=== PATIENT | female | born 2000 | race Caucasian/White ===

== ENCOUNTER 2020-01-03 05:21 | Inpatient (IN) | payer MEDICAID, OTHER ==
[~2020-01-03] VITALS: Ht 5 cm; Wt 96.9 kg
[2020-01-03] VITALS (71 sets, daily range): BP systolic 99–199; BP diastolic 58–105
[~2020-01-03 05:21] MED LIST: ABX
--- OUTSIDE RECORDS SUMMARY | 2020-01-03 05:26 | XMS REPORT ---
Author Author [facility] senior ui ux designer [employer] [facility] Address [address] [address] Care Team Providers Care Data Center Operator Name Role Phone NO, LOCAL PHYSICIAN Unavailable Unavailable ALECIA SHIN Unavailable Unavailable HILARY RENEE MD Unavailable Unavailable Unavailable Unavailable Allergies Normalized Allergy Reported Date of Reaction(s) Care Provider Facility Allergy Type classification allergen Allergy Onset DA (2 Unclassified No Known Drug 07-07-2016 - no information HILARY RENEE , Not Available sources.) Allergies (86495) Medications No Information Problems Active Problems Problem Normalized Date Last Normalized Normalized Provider Fa cility Classification Problem(s) Recorded Problem Problem Sta tus Duration Substance-rela Nicotine Chronic Active HILARY RENEE , Not Available kumar disorders dependence, (81137) (2 sources.) cigarettes, uncomplicated Past or Other Problems Problem Normalized Date Last Normalized Normalized Provider Fa cility Classification Problem(s) Recorded Problem Problem Sta tus Duration Bacterial Chlamydial Episodic Completed ALECIA Not Availab le infection; infection, MARCI ACOSTA (32445) unspecified unspecified site (1 source.) Abdominal pain Lower Episodic Completed HILARY RENEE , Not Available (1 source.) abdominal (84123) pain, unspecified Ovarian cyst Unspecified no information no information HILARY SOLIS , Not Available (1 source.) ovarian cystMD (19220) right side Procedures The data below is from unstructured sourcesNo known history of procedures. Immunizations The data below is from unstructured sourcesNo immunization records. Results No Information Vital Signs The data below is from unstructured sources Vital Response Date/Time Temperature (Fahrenheit) 97.8 degree s F (97.6 - 99.5) 07/08/2016 5:12pm Temperature (Calculated Celsius) 36. 87669 degrees C (36.4 - 37.5) 07/08/2016 5:12pm Temperature Source Temporal 07/08/2016 5:12pm Pulse Rate (Adolescent 12-19yrs) 74 bpm (56 - 106) 07/08/2016 5:12pm O2 Sat by Pulse Oximetry 98 % (88 - 100) 07/07/2016 6:55pm Respiratory Rate (Adolescent 12-19yrs) 16 bpm (15 - 20) 07/08/2016 5:12pm Blood Pressure / Blood Pressure Systolic (Adolescent 12-19yrs) 141 mm Hg (115 - 120) 07/08/2016 5:12pm Pain Numeric Pain Scale 0-No Pain 07/08/2016 5:12pm Height (Feet) 5 feet 12/2015 5:12pm Height (Inches) 0 inches 07/07/2016 4:20pm Height (Calculated Centimeters) 152. 804715 cm 07/08/2016 5:12pm Weight (Pounds) 160 pounds 07/08/2016 5:12pm Weight (Calculated Kilograms) 72.574 780 kilograms 07/08/2016 5:12pm Calculated BMI 31.24 11/2015 4:20pm Interventions No Information Plan of Treatment The data below is from unstructured sources Discharge Date 07/08/16 7:01pm Disposition 01 HOME, SELF-CARE Condition at Discharge Improved Instructions/Education Provided Chla mydia and Gonorrhea Sexually-Transmitted Diseases (DC) Forms Provided Local Medical Staff L isting Prescriptions See Medication Section Referrals NO,LOCAL PHYSICIAN - [facility] Physician Additional Instructions/Education Al l discharge instructions reviewed with patient and/or family. 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 Take as directed. Continue medications prescribed by Dr. Renee at [facility] emergency department yesterday. Follow-up with the family practitioner of your choice or health department of your choice for retesting for Chlamydia after treatment is completed. Have all partners tested and treated for Chlamydia. No intercourse or oral sex until cleared by your family practitioner. Return to the emergency department for worsened symptoms or any other concerns. Goals No Information Social History No Information Functional Status The data below is from unstructured sourcesNo functional status results. Mental Status No Information Encounters No Information Medical Equipment No Information Payers No Information Advance Directives Directive Response Recor ded Date/Time Advance Directives No 5:21pm Resuscitation Status Full Code 07/08/16 5:21pm Discharge Instructions No hospital discharge instructions. Additional Source Comments This clinical document has been generated using [employer] software that has been certified by the Office of the National Coordinator for Health Information Technology (ONC 15.99.04.3023.Diam.31.00.0.039682) and the National Committee for Medical Data Analyst (NCQA, as an eMeasure certified technology). FOR RECORDS PERTAINING TO PATIENTS WHO ARE OR HAVE BEEN ENROLLED IN A CHEMICAL D EPENDENCY/SUBSTANCE ABUSE PROGRAM, SOME INFORMATION MAY BE OMITTED. This clinica l summary was aggregated from multiple sources. Caution should be exercised in using it in the provision of clinical care. This summary normalizes information from multiple sources, and as a consequence, information in this document may ma terially change the coding, format and clinical context of patient data. In kristin tion, data may be omitted in some cases. CLINICAL DECISIONS SHOULD BE BASED ON T HE PRIMARY CLINICAL RECORDS. [employer] provides no warranty or guara ntee of the accuracy or completeness of information in this document.The followi ng information is based on time limited clinical information
--- OUTSIDE RECORDS SUMMARY | 2020-01-03 05:26 | XMS REPORT | Continuity of Care Document ---
Author Organization Unknown Address Unknown Phone Unavailable Allergies Active Description Code Type Severity Reaction Onset Reported/Identified Relationship to Patient Clinical Status Yes No Known Drug Allergies [id number] Drug Allergy Unknown N/A 07/07/2016 Medications There is no data. Problems Date Dx Coded Attending Type Code Diagnosis Diagnosed By 07/07/2016 HILARY PALENCIA MD Ot F17.210 NICOTINE DEPENDENCE, CIGARETTES, UNCOMPL 07/07/2016 HILARY PALENCIA MD Ot N39. 0 URINARY TRACT INFECTION, SITE NOT SPECIF 07/07/2016 HILARY PALENCIA MD Ot N83.201 UNSPECIFIED OVARIAN CYST, RIGHT SIDE 07/07/2016 HILARY PALENCIA MD Ot R10. 30 LOWER ABDOMINAL PAIN, UNSPECIFIED 07/08/2016 ALECIA SHIN Ot A74.9 CHLAMYDIAL INFECTION, UNSPECIFIED 07/08/2016 ALECIA SHIN Ot F17.210 NICOTINE DEPENDENCE, CIGARETTES, UNCOMPL 07/08/2016 ALECIA SHIN Ot N39.0 URINARY TRACT INFECTION, SITE NOT SPECIF 07/09/2016 HILARY PALENCIA MD Ot F17.210 NICOTINE DEPENDENCE, CIGARETTES, UNCOMPL 07/09/2016 HILARY PALENCIA MD Ot N39. 0 URINARY TRACT INFECTION, SITE NOT SPECIF 07/09/2016 HILARY PALENCIA MD Ot N83.201 UNSPECIFIED OVARIAN CYST, RIGHT SIDE 07/09/2016 HILARY PALENCIA MD Ot R10. 30 LOWER ABDOMINAL PAIN, UNSPECIFIED 07/09/2016 ALECIA SHIN Ot A74.9 CHLAMYDIAL INFECTION, UNSPECIFIED 07/09/2016 ALECIA SHIN Ot F17.210 NICOTINE DEPENDENCE, CIGARETTES, UNCOMPL 07/09/2016 ALECIA SHIN Ot N39.0 URINARY TRACT INFECTION, SITE NOT SPECIF Procedures There is no data. Results Test Result Range Complete urinalysis with reflex to cultu re - 07/07/16 16:18 Urine color determination YELLOW NRG Urine clarity determination SLIGHTLY CLOUDY NRG Urine pH measurement by test strip 6.5 5-9 Specific gravity of urine by test strip 1.005 1.016-1.022 Urine protein assay by test strip, semi-quantitative NEGATIVE NEGATIVE Urine glucose detection by automated test strip NE GATIVE NEGATIVE Erythrocytes detection in urine sediment by light micr oscopy 1+ NEGATIVE Urine ketones detection by automated test strip NE GATIVE NEGATIVE Urine nitrite detection by test strip NEGATIVE NEGATIVE Urine total bilirubin detection by test strip NEGA TIVE NEGATIVE Urine urobilinogen measurement by automated test strip (mass/volume) NORMAL NORMAL Urine leukocyte esterase detection by dipstick 2+ NEGATIVE Automated urine sediment erythrocyte cou nt by microscopy (number/high power field) [HPF] NRG Automated urine sediment leukocyte count by microscopy (number/high power field) [HPF] NRG Bacteria detection in urine sediment by light microsco py FEW NRG Squamous epithelial cells detection in u rine sediment by light microscopy 25-50 NRG Crystals detection in urine sediment by light microsco py NONE NRG Casts detection in urine sediment by light microscopy NONE NRG Mucus detection in urine sediment by light microscopy NEGATIVE NRG Complete urinalysis with reflex to culture YES NRG Bacterial urine culture - 07/07/16 16:18 Bacterial urine culture [id number] NRG COLONY COUNT >100,000/ML NRG FTX;REPORTABLE PLUS MIXED GRAM POSITIVES NRG URINE CULTURE RESULTS <10,000/ML NRG FREE TEXT ENTRY 2 <10,000/ML NRG Complete blood count (CBC) with automate d white blood cell (WBC) differential - 07/07/16 16:34 Blood leukocytes automated count (number/volume) 9.2 10*3/uL 4.3-11.0 Blood erythrocytes automated count (number/volume) 5.37 10*6/uL 4.35-5.85 Venous blood hemoglobin measurement (mass/volume) 15.9 g/dL 11.5-16.0 Blood hematocrit (volume fraction) 46 % 35-52 Automated erythrocyte mean corpuscular volume 86 [ foz_us] 80-99 Automated erythrocyte mean corpuscular h emoglobin (mass per erythrocyte) 30 pg 25-34 Automated erythrocyte mean corpuscular h emoglobin concentration measurement (mass/volume) 34 g/dL 32-36 Automated erythrocyte distribution width ratio 12. 4 % 10.0- 14.5 Automated blood platelet count (count/volume) 273 10*3/uL 130-400 Automated blood platelet mean volume measurement 10.7 [foz_us] 7.4-10.4 Automated blood neutrophils/100 leukocytes 52 % 42-75 Automated blood lymphocytes/100 leukocytes 36 % 12-44 Blood monocytes/100 leukocytes 9 % 0-12 Automated blood eosinophils/100 leukocytes 3 % 0-10 Automated blood basophils/100 leukocytes 1 % 0-10 Blood neutrophils automated count (number/volume) 4.8 10*3 1.8-7.8 Blood lymphocytes automated count (number/volume) 3.3 10*3 1.0-4.0 Blood monocytes automated count (number/volume) 0. 8 10*3 0.0-1.0 Automated eosinophil count 0.2 10*3/uL 0 .0-0.3 Automated blood basophil count (count/volume) 0.1 10*3/uL 0.0-0.1 Lipase - 07/07/16 16:34 Lipase 60 U/L 8-78 Comprehensive metabolic panel - 07/07/16 16:34 Serum or plasma sodium measurement (moles/volume) 141 mmol/L 135-145 Serum or plasma potassium measurement (moles/volume) 4.0 mmol/L 3.6-5.0 Serum or plasma chloride measurement (moles/volume) 108 mmol/L 98-107 Carbon dioxide 23 mmol/L 21-32 Serum or plasma anion gap determination (moles/volume) 10 mmol/L 5-14 Serum or plasma urea nitrogen measurement (mass/volume ) 9 mg/dL 7-18 Serum or plasma creatinine measurement (mass/volume) 0.77 mg/dL 0.60-1.30 Serum or plasma urea nitrogen/creatinine mass ratio 12 NRG Serum or plasma creatinine measurement w ith calculation of estimated glomerular filtration rate > NRG Serum or plasma glucose measurement (mass/volume) 64 mg/dL 70-105 Serum or plasma calcium measurement (mass/volume) 9.5 mg/dL 8.5-10.1 Serum or plasma total bilirubin measurement (mass/volu me) 0.3 mg/dL 0.1-1.0 Serum or plasma alkaline phosphatase ata surement (enzymatic activity/volume) 22 U/L 60-350 Serum or plasma aspartate aminotransfera se measurement (enzymatic activity/volume) 17 U/L 5-34 Serum or plasma alanine aminotransferase measurement (enzymatic activity/volume) 36 U/L 0-55 Serum or plasma protein measurement (mass/volume) 7.6 g/dL 6.4-8.2 Serum or plasma albumin measurement (mass/volume) 4.8 g/dL 3.2-4.5 Encounters ACCT No. Visit Date/Time Discharge Status Pt. Type Provider Facility Loc./Unit Complaint [id number] 07/08/2016 17:09:00 016 19:01:00 DIS Emergency ALECIA SHIN Via [facility] ER POSSIBLE UTI [id number] 07/07/2016 16:10:00 016 18:55:00 DIS Emergency TALHA FIORE, HILARY Farris Via [facility] ER STOMACH PAIN [id number] 01/03/2020 06:00:00 P EN Preadmit PRAMOD FISHER, SENDY Jones NDUCTION
[2020-01-03] MEDS ORDERED: MINERAL OIL CONCENTRATE 99.9% 15 ML UDC TOP PRN (05:30)
--- NOTE | 2020-01-03 05:30 | NUR ---
GREYSON ALVAREZ presented to unit via ambulation from ED, accompanied by juan antonio for INDUCTION of labor. GREYSON ALVAREZ weighed, gowned, voided, and to bed. EFHM and TOCO applied, VS taken. GREYSON ALVAREZ oriented to bed controls, call light, TV, heat, and A/C controls.
[2020-01-03] MEDS: D5 LR IV SOLUTION 1,000 ML IV SCH ×3 (05:54→19:26)
[2020-01-03 05:56] LABS: BILIRUBIN,URINE NEGATIVE (NEGATIVE); CLARITY,URINE SL CLOUDY; COLOR,URINE YELLOW; GLUCOSE, URINE (UA) NEGATIVE (NEGATIVE); KETONES,URINE NEGATIVE (NEGATIVE); LEUKOCYTE ESTERASE ,URINE 1+ (NEGATIVE); NITRITE,URINE NEGATIVE (NEGATIVE); PROTEIN,URINE NEGATIVE (NEGATIVE)
[2020-01-03] MEDS ORDERED: CATHETER FLUSH 10 ML SYR IV SCH (06:00)
[2020-01-03 06:06] LABS: BASOPHILS % (AUTO) 0 % (0-10); EOSINOPHILS # (AUTO) 0.1 10^3/uL (0.0-0.3); EOSINOPHILS % (AUTO) 1 % (0-10); HEMATOCRIT 37 % (35-52); HEMOGLOBIN 12.6 G/DL (11.5-16.0); LYMPHOCYTES % (AUTO) 22 % (12-44); MEAN CORPUSCULAR HEMOGLOBIN 29 PG (25-34); MEAN CORPUSCULAR HGB CONC 34 G/DL (32-36); MEAN CORPUSCULAR VOLUME 84 FL (80-99); MEAN PLATELET VOLUME 11.4 FL (7.4-10.4); MONOCYTES # (AUTO) 0.8 X 10^3 (0.0-1.0); MONOCYTES % (AUTO) 6 % (0-12); NEUTROPHILS # (AUTO) 9.7 X 10^3 (1.8-7.8); NEUTROPHILS % (AUTO) 71 % (42-75); PLATELET COUNT 214 10^3/uL (130-400); RED CELL DISTRIBUTION WIDTH 13.3 % (10.0-14.5); WHITE BLOOD COUNT 13.7 10^3/uL (4.3-11.0)
[2020-01-03 06:10] LABS: BACTERIA,URINE TRACE /HPF; WBC,URINE RARE /HPF
[2020-01-03] MEDS ORDERED: LACTATED RINGERS 1,000 ML IV ONE ×2 (06:45→07:39)
[2020-01-03] MEDS ORDERED: fentaNYL INJECTION 100 MCG/2 ML AMP ONE (06:57)
[2020-01-03] MEDS ORDERED: BUPIVACAINE 0.25% 30 ML (SENSORCAINE) VIAL ONE (06:57)
[2020-01-03] MEDS ORDERED: fentaNYL 2 mcg/ml BUPIVA 0.125 100 ML ONE (06:58)
--- NOTE | 2020-01-03 07:28 | History & Physical-OB/GYN ---
History of Present Illness History of Present Illness Reason for visit/HPI Ms. Colunga, A0, at 39 2/7 weeks gestation, presents to Labor & Delivery for Pitocin Induction of Labor. Date of Admission Jan 03, 2020 at 05:21 Date Seen by a Provider: Jan 03, 2020 Time Seen by a Provider: 06:55 I consulted on this patient on 01/03/20 07:22 Attending Physician Conrad Ryan DO Admitting Physician Conrad Ryan DO Consult Allergies and Home Medications Allergies Coded Allergies: No Known Drug Allergies (Unverified , 07/07/16) Patient Home Medication List Home Medication List Reviewed: Yes Past Cpzioty-Ocwxjt-Gsyrvx Hx Patient Social History Marrital Status: single Number of Children: 0 Number of living children: 0 Alcohol Use: Denies Use Recreational Drug Use: No Type Used: Cigarettes Recent Foreign Travel: No Contact w/other who traveled: No Recent Hopitalizations: No Immunizations Up To Date Tetanus Booster (TDap): Less than 5yrs Seasonal Allergies Seasonal Allergies: No Reproductive System Hx Reproductive Disorders: No Genitourinary No Gastrointestinal No Musculoskeletal No Endocrine History of Endocrine Disorders: No HEENT History of HEENT Disorders: No Cancer No Psychosocial History of Psychiatric Problem: No Integumentary History of Skin or Integumenta: No Family Medical History Significant Family History: No Pertinent Family Hx Review of Systems Constitutional: see HPI Physical Exam Physical Exam Vital Signs Vital Signs Date Time Temp Pulse Resp B/P (MAP) Pulse Ox O2 Delivery O2 Flow Rate FiO2 01/03/20 06:30 36.5 98 18 128/86 (100) 98 Capillary Refill : Labs Laboratory Tests 01/03/20 05:45: White Blood Count 13.7H, Red Blood Count 4.37, Hemoglobin 12.6, Hematocrit 37, Mean Corpuscular Volume 84, Mean Corpuscular Hemoglobin 29, Mean Corpuscular Hemoglobin Concent 34, Red Cell Distribution Width 13.3, Platelet Count 214, Mean Platelet Volume 11.4H, Neutrophils (%) (Auto) 71, Lymphocytes (%) (Auto) 22, Monocytes (%) (Auto) 6, Eosinophils (%) (Auto) 1, Basophils (%) (Auto) 0, Neutrophils # (Auto) 9.7H, Lymphocytes # (Auto) 3.0, Monocytes # (Auto) 0.8, Eosinophils # (Auto) 0.1, Basophils # (Auto) 0.0 01/03/20 05:48: Urine Color YELLOW, Urine Clarity SL CLOUDY, Urine pH 7.0, Urine Specific [place] 1.020, Urine Protein NEGATIVE, Urine Glucose (UA) NEGATIVE, Urine Ketones NEGATIVE, Urine Nitrite NEGATIVE, Urine Bilirubin NEGATIVE, Urine Urobilinogen 0.2, Urine Leukocyte Esterase 1+H, Urine RBC (Auto) NEGATIVE, Urine RBC NONE, Urine WBC RARE, Urine Squamous Epithelial Cells 5-10, Urine Crystals NONE, Urine Bacteria TRACE, Urine Casts NONE, Urine Mucus LARGEH, Urine Culture Indicated NO General Appearance: No Apparent Distress, WD/WN Respiratory: Chest Non Tender, Lungs Clear, Normal Breath Sounds Cardiovascular: Regular Rate, Rhythm, No Murmur Abdominal: normal bowel sounds (Gravid), non tender, soft Labia: WNL Vagina: WNL Cervix: WNL Uterus: WNL, Enlarged (Gravid) Extremity: Normal Range of Motion, Non Tender, Swelling (+1 in lower extremities) Assessment/Plan Assessment and Plan Assessment: Intrauterine at 39 2/7 weeks Plan: Pitocin Induction of Labor. AROM. Epidural anesthesia. Normal Spontaneous Vaginal Delivery expected. Admission Diagnosis Admission Status: Inpatient Order (span 2 midnights) Reason for Inpatient Admission: Intrauterine with delivery expected CONRAD RYAN DO Jan 03, 2020 07:28
[2020-01-03] MEDS ORDERED: OXYTOCIN PRE-MIX DRIP 500 ML IV ONE ×2 (07:30→23:37)
[2020-01-03] MEDS: fentaNYL 2 mcg/ml BUPIVA 0.125 100 ML IV SCH ×2 (07:35→16:15)
[2020-01-03] MEDS ORDERED: CATHETER FLUSH 10 ML SYR IV PRN (07:45)
[2020-01-03] MEDS ORDERED: EPIDURAL (fentaNYL 2 MCG/ML BUPIVA 0.125%)100 ML BAG EPI SCH (07:45)
[2020-01-03] MEDS ORDERED: NALOXONE 0.4 MG/ML 1 ML (NARCAN) VIAL IV PRN (07:45)
[2020-01-03] MEDS ORDERED: PREN-142 PO (09:01)
--- NOTE | 2020-01-03 12:29 | NUR ---
Notified Dr Ryan per text of pt's dilated to 3-4 cms. No new orders.
--- NOTE | 2020-01-03 19:05 | NUR ---
report received on pt.
--- NOTE | 2020-01-03 19:40 | NUR ---
Pitocin restarted at 10m/u.
--- NOTE | 2020-01-03 20:09 | NUR ---
Dr Ryan notified of cervical exam.
[2020-01-04] VITALS (28 sets, daily range): BP systolic 108–143; BP diastolic 65–108
[2020-01-04] MEDS ORDERED: ACETAMINOPHEN 650 MG SUPP (TYLENOL) PR ONE (00:15)
[2020-01-04] MEDS: fentaNYL 2 mcg/ml BUPIVA 0.125 100 ML IV SCH (01:07)
[2020-01-04] MEDS: D5 LR IV SOLUTION 1,000 ML IV SCH (01:56)
[2020-01-04] MEDS ORDERED: CITRIC ACID/SOB CIT (BICITRA) 30 ML UDC ONE (04:31)
[2020-01-04] MEDS ORDERED: METOCLOPRAMIDE INJ 10 MG/2 ML (REGLAN) ONE (04:31)
[2020-01-04] MEDS ORDERED: ceFAZolin 2 GM IV Premixed 50 ML ONE (04:31)
[2020-01-04] MEDS ORDERED: FAMOTIDINE 20MG/2ML IV (PEPCID) ONE (04:32)
--- NOTE | 2020-01-04 04:50 | Labor Progress Note ---
Labor Progress Note Labor Progress Note Date Seen by Provider: Jan 04, 2020 Time Seen by Provider: 04:00 Subjective: Ms. Colunga only complains of pressure. Objective: (Can we insert 24 hour vitals here?) Cervical exam: [Complete] Consistency: [100%] Position: [LOP] Presentation: [Vertex] heart tones: [160-170] beats per minute, [moderate] variability, [] reactive Tocometer: [3-4] ctx/10 minutes Assessment/Plan: Sam Colunga is a (19 /Para 1 /0 ,Gestational Age (wks)39 here for [Pitocin Induction]. CEFM/TOCO Continue pitocin/[No] Anesthesia: [Epidural] Ms. Colunga has pushed for several hours with no further descent of vertex, only increase of caput secundum. Low forceps were attempted, with no further progress. In the LOP presentation, I told Ms. Colunga and her significant other that it doesn't seem as though a vaginal delivery is possible. We discussed proceeding with a . The procedure and its associated risks were discussed. All questions were answered. Assessment: Intrauterine at 39 3/7 weeks 2. Tachycardia 3. Secondary Arrest of Descent 4. Persistent Occiput Posterior Plan: Proceed with an immediate Primary Low Transverse Vitals - Labs Vital Signs - I&O Vital Signs Date Time Temp Pulse Resp B/P (MAP) Pulse Ox O2 Delivery O2 Flow Rate FiO2 01/04/20 03:15 123 126/65 (85) 01/04/20 03:00 101 125/67 (86) 01/04/20 02:45 107 123/70 (87) 01/04/20 02:30 115 123/75 (91) 01/04/20 02:15 109 121/76 (91) 01/04/20 02:00 37.6 103 127/80 (96) 01/04/20 01:45 108 130/80 (97) 01/04/20 01:30 130 128/80 (96) 01/04/20 01:15 103 132/79 (96) 01/04/20 01:00 37.2 99 121/71 (88) 01/04/20 00:45 91 129/82 (98) 01/04/20 00:32 37.4 01/04/20 00:30 90 135/82 (99) 01/04/20 00:15 96 141/86 (104) 01/04/20 00:00 37.2 94 131/88 (102) 01/03/20 23:45 80 142/69 (93) 01/03/20 23:30 93 160/71 (100) 01/03/20 23:15 93 177/78 (111) 01/03/20 23:00 101 145/94 (111) 01/03/20 22:45 37.1 111 142/93 (109) 01/03/20 22:30 37.2 103 139/100 (113) 01/03/20 22:15 106 138/92 (107) 01/03/20 22:00 96 138/89 (105) 01/03/20 21:45 98 141/95 (110) 01/03/20 21:30 93 149/91 (110) 01/03/20 21:15 87 160/103 (122) 01/03/20 21:00 36.7 88 152/95 (114) 01/03/20 20:45 82 150/94 (112) 01/03/20 20:30 76 160/95 (116) 01/03/20 20:15 113 151/78 (102) 01/03/20 20:00 89 165/105 (125) Non Rebreather 01/03/20 19:45 36.5 82 133/85 (101) Non Rebreather 01/03/20 19:30 78 133/85 (101) Non Rebreather 01/03/20 19:15 71 117/75 (89) Non Rebreather 01/03/20 19:00 77 129/82 (98) Room Air 01/03/20 18:45 82 136/94 (108) Room Air 01/03/20 18:30 83 125/88 (100) Room Air 01/03/20 18:15 76 139/96 (110) Room Air 01/03/20 18:00 85 140/101 (114) Room Air 01/03/20 17:45 103 199/78 (118) Room Air 01/03/20 17:30 74 129/87 (101) Room Air 01/03/20 17:15 88 114/74 (87) Room Air 01/03/20 17:00 82 112/79 (90) Room Air 01/03/20 16:45 82 112/79 (90) Room Air 01/03/20 16:30 65 122/84 (97) Room Air 01/03/20 16:15 68 120/78 (92) Room Air 01/03/20 16:00 36.2 70 16 110/72 (85) Room Air 01/03/20 15:45 71 99/72 (81) Room Air 01/03/20 15:30 66 108/66 (80) Room Air 01/03/20 15:15 68 103/63 (76) Room Air 01/03/20 15:00 68 99/59 (72) Room Air 01/03/20 14:45 64 109/64 (79) Room Air 01/03/20 14:30 Room Air 01/03/20 14:15 80 130/80 (97) Room Air 01/03/20 14:00 75 123/78 (93) Room Air 01/03/20 13:45 36.4 83 121/71 (88) Room Air 01/03/20 13:30 Room Air 01/03/20 13:15 79 120/75 (90) Room Air 01/03/20 13:00 71 16 109/68 (82) Room Air 01/03/20 12:45 36.9 81 105/70 (82) Room Air 01/03/20 12:30 74 101/61 (74) Room Air 01/03/20 12:15 83 118/71 (87) 98 Room Air 01/03/20 12:00 71 127/61 (83) 99 Room Air 01/03/20 11:45 80 97 Room Air 01/03/20 11:30 67 119/61 (80) 98 Room Air 01/03/20 11:15 66 118/61 (80) 98 Room Air 01/03/20 11:00 85 116/68 (84) 97 Room Air 01/03/20 10:45 70 109/60 (76) 97 Room Air 01/03/20 10:30 67 106/62 (77) 99 Room Air 01/03/20 10:15 67 116/68 (84) 99 Room Air 01/03/20 10:00 83 109/58 (75) 95 Room Air 01/03/20 09:45 73 105/60 (75) 95 Room Air 01/03/20 09:30 64 108/60 (76) 94 Room Air 01/03/20 09:15 66 108/60 (76) 96 Room Air 01/03/20 09:00 71 16 110/70 (83) 96 Room Air 01/03/20 08:45 70 113/72 (86) 97 Room Air 01/03/20 08:30 89 119/77 (91) 93 Room Air 01/03/20 08:15 93 114/78 (90) 98 Room Air 01/03/20 08:00 77 16 128/85 (99) 98 Room Air 01/03/20 07:45 96 120/77 (91) 97 01/03/20 07:42 88 122/73 (89) 96 01/03/20 07:40 88 125/81 (96) 01/03/20 07:36 94 16 128/82 (97) 01/03/20 07:35 86 135/95 (108) 100 01/03/20 07:33 86 118/81 (93) 01/03/20 07:22 97 145/105 (118) 98 01/03/20 07:22 86 122/73 (89) 96 01/03/20 07:16 94 149/105 (120) 100 Room Air 01/03/20 07:10 135/96 (109) 99 01/03/20 06:30 36.5 98 18 128/86 (100) 98 01/03/20 06:30 36.5 98 16 98 Room Air I & O 01/04/20 07:00 Intake Total 2100 ml Balance 2100 ml Labs Laboratory Tests 01/03/20 05:45: White Blood Count 13.7H, Red Blood Count 4.37, Hemoglobin 12.6, Hematocrit 37, Mean Corpuscular Volume 84, Mean Corpuscular Hemoglobin 29, Mean Corpuscular Hemoglobin Concent 34, Red Cell Distribution Width 13.3, Platelet Count 214, Mean Platelet Volume 11.4H, Neutrophils (%) (Auto) 71, Lymphocytes (%) (Auto) 22, Monocytes (%) (Auto) 6, Eosinophils (%) (Auto) 1, Basophils (%) (Auto) 0, Neutrophils # (Auto) 9.7H, Lymphocytes # (Auto) 3.0, Monocytes # (Auto) 0.8, Eosinophils # (Auto) 0.1, Basophils # (Auto) 0.0 01/03/20 05:48: Urine Color YELLOW, Urine Clarity SL CLOUDY, Urine pH 7.0, Urine Specific [place]ena 1.020, Urine Protein NEGATIVE, Urine Glucose (UA) NEGATIVE, Urine Ketones NEGATIVE, Urine Nitrite NEGATIVE, Urine Bilirubin NEGATIVE, Urine U robilinogen 0.2, Urine Leukocyte Esterase 1+H, Urine RBC (Auto) NEGATIVE, Urine RBC NONE, Urine WBC RARE, Urine Squamous Epithelial Cells 5-10, Urine Crystals NONE, Urine Bacteria TRACE, Urine Casts NONE, Urine Mucus LARGEH, Urine Culture Indicated NO SEALS,SENDY Garcia DO Jan 04, 2020 04:50
[2020-01-04] MEDS ORDERED: OXYTOCIN PRE-MIX DRIP 1,000 ML IV ONE (04:58)
[2020-01-04] MEDS ORDERED: LIDOCAINE PF 2% 5 ML (XYLOCAINE) VIAL ONE (04:58)
[2020-01-04] MEDS ORDERED: ONDANSETRON 4 MG/2 ML (SDV) Z0FRAN ONE (04:58)
[2020-01-04] MEDS ORDERED: BUPIVACAINE 0.25% 30 ML (SENSORCAINE) VIAL ONE (04:58)
[2020-01-04] MEDS ORDERED: fentaNYL INJECTION 100 MCG/2 ML AMP ONE (04:58)
[2020-01-04] MEDS ORDERED: KETOROLAC 30 MG/ML VIAL ONE (05:03)
[2020-01-04] MEDS ORDERED: MIDAZOLAM 2 MG/2 ML (VERSED) VIAL ONE (05:38)
[2020-01-04] MEDS ORDERED: KETAMINE/NaCl 50 MG/5 ML SYRINGE (ED ONLY) ONE (05:38)
[2020-01-04] MEDS: KETOROLAC 30 MG/ML VIAL IV SCH ×3 (06:15→18:43)
[2020-01-04] MEDS ORDERED: OXYTOCIN PRE-MIX DRIP 500 ML IV SCH (06:34)
[2020-01-04] MEDS ORDERED: fentaNYL INJECTION 100 MCG/2 ML AMP IVP PRN (06:45)
[2020-01-04] MEDS ORDERED: TETANUS,DIPTH,PERTUSS P/F (BOOSTRIX) 0.5 ML VIAL IM SCH (06:45)
[2020-01-04] MEDS ORDERED: MEASLES,MUMPS,RUBELLA 1 EA INJ SC SCH (06:45)
[2020-01-04] MEDS ORDERED: ONDANSETRON 4 MG/2 ML (SDV) Z0FRAN IVP PRN (06:45)
--- NOTE | 2020-01-04 06:49 | Cesarean Section Operative ---
Procedure Procedure Note Pre-operative Diagnosis: Sam vaughn (19 /Para / ,Gestational Age (wks)39 3/7 weeks with [Secondary Arrest of Descent 2. Tachycardia] Post-operative Diagnosis: same [and Persistent Occiput Posterior and Thick Meconium] Procedure: [Primary] low transverse section Physician: SENDY BENAVIDEZ Law Librarian: [None] Estimated blood loss: [200] mL Disposition: [Recovery Room] Findings: Viable [female] , Apgars [2, 7], weight [], intact placenta, 3vc, normal appearing uterus, tubes, and ovaries. Indications:Sam shahid a (19 /Para / ,Gestational Age (wks)39 3/7 weeks presenting for [Pitocin Induction, but secondary to no progression after several hours and increased heart rate along with meconium stained amniotic fluid, it was decided that we would proceed with an immediate C- Section]. Procedure Details: The patient was seen in pre-op and the procedure was discussed with the patient in full, including the risks, benefits, and alternatives. All questions were answered. The patient was taken to the operating room and a time out was performed, verifying patient and procedure. After epidural anesthesia was placed by our anesthesia colleagues, the patient was placed in the dorsal supine with leftward tilt for uterine displacement.~ Her abdomen was then prepped and draped in the typical sterile fashion. A Pfannenstiel skin incision was made using a scalpel and carried down through the underlying fascia. The fascia was incised in the midline and tented up using Luis Daniel clamps. On both the inferior and superior fascia side the rectus muscle was dissected off bluntly and sharply using Deluca scissors. The peritoneum was identified and entered bluntly in the midline. This was then stretched laterally using manual strength. After entering the abdominal cavity and confirming lack of intraperitoneal adhesions, a large Wing retractor was placed and the lower uterine segment was visualized. A bladder flap was created with the use of Metzenbaum scissors.~ A scalpel was utilized to make a low transverse uterine incision. Thick meconium fluid was noted. The 's head was grasped and brought to the level of the incision. Nuchal cord x 1 was manually reduced. Fundal pressure was applied and was delivered without difficulty. Mouth and nares were suctioned with bulb suction. After the umbilical cord was clamped and cut, the infant was handed off to the pediatric staff where NRP protocol was followed. A sample of cord blood was then obtained. The placenta was delivered intact via uterine massage. The uterus was exteriorized and cleared of all clots and debris. The uterine incision was closed using 0 Vicryl in a running locked fashion. A second imbricated layer was placed using 0 Vicryl in a running fashion as well. The uterus was flexed forw hiram and the posterior rectouterine space was inspected and cleared of all clots and debris. Again the hysterotomy site was examined and hemostasis was observed. The bilateral tubes and ovaries appeared normal. The vesicouterine peritoneum was approximated with 3-0 Vicryl in a running fashion. The uterus was placed back into the abdominal cavity and abdominal gutters were cleared of all clots and debris. A final check of the uterine incision showed it to be hemostatic. The parietal peritoneum was closed using 3-0 Vicryl in a running fashion. The fascia was closed with 0 Vicryl in a running fashion. The subcutaneous space was hemostatic, and irrigated. The subcutaneous space was closed with 3-0 Plain Gut in a continuous running fashion. The skin was then closed using 4-0 Monocryl in a running subcuticular fashion. The skin edges were reapproximated together and were hemostatic. A pressure dressing was applied. All sponge, lap and needle counts were correct x 3 at the end of the procedure per nursing. Vitals - Labs Vital Signs - I&O Vital Signs Date Time Temp Pulse Resp B/P (MAP) Pulse Ox O2 Delivery O2 Flow Rate FiO2 01/04/20 04:45 37.7 131 138/90 (106) 01/04/20 04:30 114 136/85 (102) 01/04/20 04:15 111 140/87 (104) 01/04/20 04:00 106 143/86 (105) 01/04/20 03:45 111 141/108 (119) 01/04/20 03:30 37.5 112 135/82 (99) 01/04/20 03:15 123 126/65 (85) 01/04/20 03:00 101 125/67 (86) 01/04/20 02:45 107 123/70 (87) 01/04/20 02:30 115 123/75 (91) 01/04/20 02:15 109 121/76 (91) 01/04/20 02:00 37.6 103 127/80 (96) 01/04/20 01:45 108 130/80 (97) 01/04/20 01:30 130 128/80 (96) 01/04/20 01:15 103 132/79 (96) 01/04/20 01:00 37.2 99 121/71 (88) 01/04/20 00:45 91 129/82 (98) 01/04/20 00:32 37.4 01/04/20 00:30 90 135/82 (99) 01/04/20 00:15 96 141/86 (104) 01/04/20 00:00 37.2 94 131/88 (102) 01/03/20 23:45 80 142/69 (93) 01/03/20 23:30 93 160/71 (100) 01/03/20 23:15 93 177/78 (111) 01/03/20 23:00 101 145/94 (111) 01/03/20 22:45 37.1 111 142/93 (109) 01/03/20 22:30 37.2 103 139/100 (113) 01/03/20 22:15 106 138/92 (107) 01/03/20 22:00 96 138/89 (105) 01/03/20 21:45 98 141/95 (110) 01/03/20 21:30 93 149/91 (110) 01/03/20 21:15 87 160/103 (122) 01/03/20 21:00 36.7 88 152/95 (114) 01/03/20 20:45 82 150/94 (112) 01/03/20 20:30 76 160/95 (116) 01/03/20 20:15 113 151/78 (102) 01/03/20 20:00 89 165/105 (125) Non Rebreather 01/03/20 19:45 36.5 82 133/85 (101) Non Rebreather 01/03/20 19:30 78 133/85 (101) Non Rebreather 01/03/20 19:15 71 117/75 (89) Non Rebreather 01/03/20 19:00 77 129/82 (98) Room Air 01/03/20 18:45 82 136/94 (108) Room Air 01/03/20 18:30 83 125/88 (100) Room Air 01/03/20 18:15 76 139/96 (110) Room Air 01/03/20 18:00 85 140/101 (114) Room Air 01/03/20 17:45 103 199/78 (118) Room Air 01/03/20 17:30 74 129/87 (101) Room Air 01/03/20 17:15 88 114/74 (87) Room Air 01/03/20 17:00 82 112/79 (90) Room Air 01/03/20 16:45 82 112/79 (90) Room Air 01/03/20 16:30 65 122/84 (97) Room Air 01/03/20 16:15 68 120/78 (92) Room Air 01/03/20 16:00 36.2 70 16 110/72 (85) Room Air 01/03/20 15:45 71 99/72 (81) Room Air 01/03/20 15:30 66 108/66 (80) Room Air 01/03/20 15:15 68 103/63 (76) Room Air 01/03/20 15:00 68 99/59 (72) Room Air 01/03/20 14:45 64 109/64 (79) Room Air 01/03/20 14:30 Room Air 01/03/20 14:15 80 130/80 (97) Room Air 01/03/20 14:00 75 123/78 (93) Room Air 01/03/20 13:45 36.4 83 121/71 (88) Room Air 01/03/20 13:30 Room Air 01/03/20 13:15 79 120/75 (90) Room Air 01/03/20 13:00 71 16 109/68 (82) Room Air 01/03/20 12:45 36.9 81 105/70 (82) Room Air 01/03/20 12:30 74 101/61 (74) Room Air 01/03/20 12:15 83 118/71 (87) 98 Room Air 01/03/20 12:00 71 127/61 (83) 99 Room Air 01/03/20 11:45 80 97 Room Air 01/03/20 11:30 67 119/61 (80) 98 Room Air 01/03/20 11:15 66 118/61 (80) 98 Room Air 01/03/20 11:00 85 116/68 (84) 97 Room Air 01/03/20 10:45 70 109/60 (76) 97 Room Air 01/03/20 10:30 67 106/62 (77) 99 Room Air 01/03/20 10:15 67 116/68 (84) 99 Room Air 01/03/20 10:00 83 109/58 (75) 95 Room Air 01/03/20 09:45 73 105/60 (75) 95 Room Air 01/03/20 09:30 64 108/60 (76) 94 Room Air 01/03/20 09:15 66 108/60 (76) 96 Room Air 01/03/20 09:00 71 16 110/70 (83) 96 Room Air 01/03/20 08:45 70 113/72 (86) 97 Room Air 01/03/20 08:30 89 119/77 (91) 93 Room Air 01/03/20 08:15 93 114/78 (90) 98 Room Air 01/03/20 08:00 77 16 128/85 (99) 98 Room Air 01/03/20 07:45 96 120/77 (91) 97 01/03/20 07:42 88 122/73 (89) 96 01/03/20 07:40 88 125/81 (96) 01/03/20 07:36 94 16 128/82 (97) 01/03/20 07:35 86 135/95 (108) 100 01/03/20 07:33 86 118/81 (93) 01/03/20 07:22 97 145/105 (118) 98 01/03/20 07:22 86 122/73 (89) 96 01/03/20 07:16 94 149/105 (120) 100 Room Air 01/03/20 07:10 135/96 (109) 99 I & O 01/04/20 07:00 Intake Total 2100 ml Output Total 30 ml Balance 2070 ml SENDY BENAVIDEZ DO Jan 04, 2020 06:49
--- NOTE | 2020-01-04 06:58 | Progress Note ---
Standard Progress Note Progress Notes/Assess & Plan Date Seen by a Provider: Jan 04, 2020 Time Seen by a Provider: 06:26 Progress/Assessment & Plan Spoke with patient again about her desire for a TAP block. US ID of TAP right side first, ID at 4cm. Sterile prep, 3 1/8 inch echogenic stimiplex needle placed under direct US visualization. 1cc given noted to be just deep to TAP. Needle removed slightly 1cc injected and TAP spread ID'd. Aspiration every 3 cc, no hem noted. 10 total in right side. Left side same prep and needle as above. 1cc given for plane ID good spread noted. 10cc total given. Same procedure as previous. Tolerated procedure well. READING,DELMIS Sanches CRNA Jan 04, 2020 06:58
--- NOTE | 2020-01-04 07:30 | NUR ---
Pt to room 304 via bed accompanied by OB staff. Pt and S.O. oriented to room and call light. VS taken. packet explained. IV pitocin to pump. Calf SCD's on and activated. Plan of care discussed. Fresh ice water and sprite provided per pt request.
--- NOTE | 2020-01-04 08:30 | NUR ---
Pt assisted up to bathroom at this time without incident. Unable to void. Pt assisted back to bed, reassurance given that bell has only been out about 1hr. No further needs voiced.
[2020-01-04] MEDS: DOCUSATE SODIUM 100 MG (COLACE) CAP PO SCH (09:00)
--- NOTE | 2020-01-04 10:00 | NUR ---
RN to room to answer call light. Pt had bowel movement unexpectedly in bed. Pericare performed, clean pad and underwear applied. Shortly after, pt up to bathroom for another soft stool. Dr. Ryan notified. Order rec'd for regular diet, D/C morning MOM and suppository. Addendum: 01/04/20 at 1519 by FABRIZIO SULLIVAN RN +void noted as well.
[2020-01-04] MEDS: METOCLOPRAMIDE 10 MG (REGLAN) TAB PO SCH ×2 (12:00→18:10)
[2020-01-04] MEDS: ACETAMINOPHEN 500 MG TAB (TYLENOL) PO SCH ×2 (12:41→18:43)
[2020-01-04] MEDS ORDERED: CATHETER FLUSH 10 ML SYR IV SCH (14:00)
--- NOTE | 2020-01-04 16:00 | NUR ---
To room for VS, pt sound asleep. Will not wake at this time. Requested S.O. for pt to call when awake.
[2020-01-04] MEDS ORDERED: ZOLPIDEM 5 MG (AMBIEN) TAB PO SCH (21:00)
[2020-01-05] MEDS: ACETAMINOPHEN 500 MG TAB (TYLENOL) PO SCH ×3 (00:16→12:03)
[2020-01-05] MEDS: KETOROLAC 30 MG/ML VIAL IV SCH ×2 (00:16→05:41)
[2020-01-05 00:17] VITALS: BP 124/86
[2020-01-05] MEDS ORDERED: MILK OF MAGNESIA 400 MG/5 ML 30 ML UDC PO NR (05:00)
[2020-01-05] MEDS ORDERED: BISACODYL 10 MG SUPP (DULCOLAX) PR ONE (05:00)
[2020-01-05 05:40] VITALS: BP 127/88
[2020-01-05 05:48] LABS: BASOPHILS % (AUTO) 0 % (0-10); EOSINOPHILS # (AUTO) 0.1 10^3/uL (0.0-0.3); EOSINOPHILS % (AUTO) 0 % (0-10); HEMATOCRIT 29 % (35-52); HEMOGLOBIN 9.9 G/DL (11.5-16.0); LYMPHOCYTES # (AUTO) 1.9 X 10^3 (1.0-4.0); LYMPHOCYTES % (AUTO) 9 % (12-44); MEAN CORPUSCULAR HEMOGLOBIN 29 PG (25-34); MEAN CORPUSCULAR HGB CONC 34 G/DL (32-36); MEAN CORPUSCULAR VOLUME 86 FL (80-99); MEAN PLATELET VOLUME 10.9 FL (7.4-10.4); MONOCYTES # (AUTO) 0.4 X 10^3 (0.0-1.0); MONOCYTES % (AUTO) 2 % (0-12); NEUTROPHILS # (AUTO) 18.4 X 10^3 (1.8-7.8); NEUTROPHILS % (AUTO) 89 % (42-75); PLATELET COUNT 169 10^3/uL (130-400); RED CELL DISTRIBUTION WIDTH 13.4 % (10.0-14.5); WHITE BLOOD COUNT 20.7 10^3/uL (4.3-11.0)
--- NOTE | 2020-01-05 07:33 | NUR ---
DR. BENAVIDEZ HERE TO SEE PT.
[2020-01-05] MEDS ORDERED: OXYC5TAB96 PO (07:35)
[2020-01-05] MEDS ORDERED: DCS100C PO (07:35)
[2020-01-05] MEDS ORDERED: ACET-93 PO (07:35)
[2020-01-05] MEDS ORDERED: IBUP-1780 PO (07:35)
--- NOTE | 2020-01-05 07:42 | Discharge Summary ---
Diagnosis/Chief Complaint Date of Admission Jan 03, 2020 at 05:21 Date of Discharge January 05, 2020 Discharge Date: Jan 05, 2020 Discharge Time: 09:00 Admission Diagnosis Admission Diagnosis Intrauterine at 39 2/7 weeks Discharge Diagnosis Intrauterine at 39 3/7 weeks 2. Secondary Arrest of Descent 3. Tachycardia 4. Meconium-stained Amniotic Fluid Reason Hospital Visit Ms. Colunga, A0, at 39 2/7 weeks gestation, presents to Labor & Delivery for Pitocin Induction of Labor. Discharge Summary Hospital Course Was the Problem List Reviewed?: Yes Hospital Course Ms. Colunga was admitted for Pitocin Induction of Labor at 39 2/7 weeks gestation. She progressed to complete, but wasn't able to get past a +1 station. That, along with tachycardia, prompted us to proceed with a Primary Low Transverse . The procedure was without complications. On her day of surgery, she was started on oral and IV pain medications along with other comfort measures. Postoperative Day #1 found Ms. Colunga voiding, moving her bowels, ambulating, tolerating a Regular Diet, controlling her pain with oral medications. She is without complaint. Her vital signs remained stable throughout her hospitalization. The remainder of her hospitalization was unremarkable. I will discharge her to home with prescriptions, instructions, and a follow up appointment. Labs Laboratory Tests 01/03/20 05:45: White Blood Count 13.7H, Mean Platelet Volume 11.4H, Neutrophils # (Auto) 9.7H 01/03/20 05:48: Urine Leukocyte Esterase 1+H, Urine Mucus LARGEH 01/05/20 05:35: White Blood Count 20.7H, Mean Platelet Volume 10.9H, Neutrophils # (Auto) 18.4H, Red Blood Count 3.42L, Hemoglobin 9.9#L, Hematocrit 29L, Neutrophils (%) (Auto) 89H, Lymphocytes (%) (Auto) 9L Procedures None. Discharge Physical Examination Allergies: Coded Allergies: No Known Drug Allergies (Unverified , 07/07/16) Vitals & I&Os Vital Signs Date Time Temp Pulse Resp B/P (MAP) Pulse Ox O2 Delivery O2 Flow Rate FiO2 01/05/20 05:40 37.0 104 18 127/88 (101) 98 Room Air General Appearance: Alert, Oriented X3, Cooperative HEENT: Atraumatic Respiratory: Clear to Auscultation, Normal Air Movement Cardiovascular: Regular Rate, No Murmurs Abdominal: Normal Bowel Sounds, Soft Extremities: No Clubbing, No Cyanosis Skin: No Rashes Neuro: Normal Gait, Normal Speech Psych/Mental Status: Mental Status NL Discharge Home Medications Reviewed and agree with Discharge Medication list on patient's Discharge Instruction sheet Instructions to Patient/Family Please see electronic discharge instructions given to patient. Clinical Quality Measures DVT/VTE Risk/Contraindication: Risk Factor Score Per Nursin RFS Level Per Nursing on Admit: 1=Low/No VTE PPX SENDY BENAVIDEZ DO Jan 05, 2020 07:42
--- NOTE | 2020-01-05 08:34 | Anesthesia-Regional Post-Op ---
Regional Patient Condition Mental Status: Alert, Oriented x3 Circulation: Same as Pre-Op Headache: Absent Sensation: Full Recovery Motor Block: Absent Post Op Complications Complications None Follow Up Care/Instructions Patient Instructions None needed. Anesthesia/Patient Condition Patient is doing well, no complaints, stable vital signs, no apparent adverse anesthesia problems. No complications reported per nursing. DELMIS FOX CRNA Jan 05, 2020 08:34
[2020-01-05 08:54] VITALS: BP 124/89
[2020-01-05] MEDS: DOCUSATE SODIUM 100 MG (COLACE) CAP PO SCH (08:56)
--- NOTE | 2020-01-05 09:00 | NUR ---
PT LYING IN BED, WATCHING TV WITH S/O AT THE BEDSIDE. SELF INTRODUCED. VS OBTAINED. MED GIVEN PO; SEE EMAR FOR FURTHER. INITIAL SHIFT ASSESSMENT COMPLETED; SEE INTERVENTION FOR FURTHER. PT DENIES ANY NEEDS AT THIS TIME. POC REVIEWED, PT VERBALIZES UNDERSTANDING. CALL LIGHT WITHIN REACH.
[2020-01-05 12:02] VITALS: BP 135/94
--- NOTE | 2020-01-05 12:15 | NUR ---
DISCHARGE PAPERS PROVIDED AND REVIEWED WITH PT, PT VERBALIZES UNDERSTANDING AND DENIES ANY NEEDS OR QUESTIONS AT THIS TIME. PAPER SIGNED. RX'S AND FOLLOW UP APPOINTMENT CARDS ALL PROVIDED AND PLACED INTO DISCHARGE FOLDER.
[2020-01-05] MEDS ORDERED: IBUPROFEN 800 MG (MOTRIN) TAB PO SCH (12:45)
--- NOTE | 2020-01-05 15:55 | NUR ---
PT DISCHARGED FROM [facility] TO [facility] ST[facility] BY Sybil APONTE RN. S/O AND INFANT AT PT'S SIDE.
== END 2020-01-05 15:55 | disposition home or self-care (01) | DRG 788 ==
LOC: LDRP 05:21 → WS 01-04 07:30
PROVIDERS: ADMIT Obstetrics & Gynecology; ATTEND Obstetrics & Gynecology
PROC: 3E033VJ Introduction of Other Hormone into Peripheral Vein, Percutaneous Approach (ICD-10-PCS; 2020-01-03)
PROC: 10D00Z1 Extraction of Products of Conception, Low, Open Approach (ICD-10-PCS; principal; 2020-01-04 05:21)
DX: O62.1 Secondary uterine inertia (principal); O76 Abnormality in fetal heart rate and rhythm complicating labor and delivery; O64.0XX0 Obstructed labor due to incomplete rotation of fetal head, not applicable or unspecified; O77.0 Labor and delivery complicated by meconium in amniotic fluid; Z3A.39 39 weeks gestation of pregnancy; Z37.0 Single live birth
CPT/HCPCS: 36415; 81000; 85025; 86850; 86900; 86901; 94664

== ENCOUNTER 2020-01-08 14:52 | Observation (INO) | payer MEDICAID ==
[~2020-01-08] VITALS: Ht 152 cm; Wt 96.9 kg
[~2020-01-08 14:52] MED LIST changes: +ACET-93 PO; +DCS100C PO; +IBUP-1780 PO; +OXYC5TAB96 PO; +PREN-142 PO
--- NOTE | 2020-01-08 15:25 | ED Integumentary General ---
General Chief Complaint: Skin/Wound Problems Stated Complaint: CSECTION WOUND INFECTED Source: patient Exam Limitations: no limitations History of Present Illness Date Seen by Provider: Jan 08, 2020 Time Seen by Provider: 15:23 Initial Comments To ER with concern of an infected wound. She had a done on 01/03/[address] Barajas. She's been doing okay, today she noticed some foul smelling brown drainage from the incision. No fevers or chills but she does have quite a bit of pain at the location. Timing/Duration: just prior to arrival Severity: moderate Associated Symptoms: denies symptoms Allergies and Home Medications Allergies Coded Allergies: No Known Drug Allergies (Unverified , 07/07/16) Home Medications Acetaminophen 500 Mg Tablet, 1,000 MG PO Q6HR Prescribed by: SENDY BENAVIDEZ on 01/05/20 0735 Docusate Sodium 100 Mg Capsule, 100 MG PO BID Prescribed by: SENDY BENAVIDEZ on 01/05/20 0735 Ibuprofen 800 Mg Tablet, 800 MG PO Q8H Prescribed by: SENDY BENAVIDEZ on 01/05/20 0735 Oxycodone HCl 5 Mg Tablet, 5 MG PO Q4HR PRN for To achieve TAG Prescribed by: SENDY BENAVIDEZ on 01/05/20 0735 Vit No.124/Iron/FA 1 Each Tablet, 1 EACH PO DAILY, (Reported) Patient Home Medication List Home Medication List Reviewed: Yes Review of Systems Review of Systems Constitutional: see HPI; No chills, No fever EENTM: see HPI Respiratory: no symptoms reported Cardiovascular: no symptoms reported Genitourinary: no symptoms reported Musculoskeletal: no symptoms reported Skin: see HPI Psychiatric/Neurological: No Symptoms Reported Endocrine: No Symptoms Reported Hematologic/Lymphatic: No Symptoms Reported Past Tjtvcry-Nekxfj-Oypdhy Hx Patient Social History Alcohol Use: Denies Use Recreational Drug Use: No Smoking Status: Current Everyday Smoker Type Used: Cigarettes Former Smoker, Quit: May 04, 2020 Recent Foreign Travel: No Contact w/Someone Who Travel: No Recent Hopitalizations: Yes () Physical Abuse: No Sexual Abuse: No Immunizations Up To Date Tetanus Booster (TDap): Less than 5yrs Seasonal Allergies Seasonal Allergies: No Past Medical History Surgeries: No Section Respiratory: No Cardiac: No Neurological: No Reproductive Disorders: No Female Reproductive Disorders: Denies Sexually Transmitted Disease: No HIV/AIDS: No Genitourinary: No Gastrointestinal: No Musculoskeletal: No Endocrine: No HEENT: No Cancer: No Psychosocial: No Integumentary: No Blood Disorders: No Adverse Reaction/Blood Tranf: No Family Medical History Hypertension 19 FATHER No Pertinent Family Hx Physical Exam Vital Signs Vital Signs - First Documented 01/08/20 15:05 Temp 37.1 Pulse 146 Resp 18 B/P (MAP) 134/86 (102) Pulse Ox 98 Capillary Refill : General Appearance: WD/WN, no apparent distress HEENT: PERRL/EOMI, normal ENT inspection Respiratory: no respiratory distress, no accessory muscle use Neurologic/Psychiatric: alert, normal mood/affect, oriented x 3 Skin: normal color, warm/dry Skin Problem Location: other (right side of the lower abdominal incision is without erythema shows only very mild erythema but a large amount of oily incredibly foul smelling brown material draining out of it) Progress/Results/Core Measures Results/Orders Lab Results My Orders Medications Given in ED Vital Signs/I&O 01/08/20 15:05 Temp 37.1 Pulse 146 Resp 18 B/P (MAP) 134/86 (102) Pulse Ox 98 Departure Communication (Admissions) Time/Spoke to Admitting Phy: 16:[address] Barajas. We'll admit on Rocephin and vancomycin. The incision has minimal erythema. On CAT scan it unimpressive to look at. However she is tachycardic with leukocytosis and foul-smelling drainage from this. She would benefit from some IV antibiotics until at least leukocytosis/tachycardia begins to improve. Impression Primary Impression: Postoperative abscess Disposition: ADMITTED INPATIENT Condition: Stable Admissions Decision to Admit Reason: Admit from ER (General) Decision to Admit/Date: Jan 08, 2020 Time/Decision to Admit Time: 11:50 Departure-Patient Inst. Referrals: NO,LOCAL PHYSICIAN (PCP/Family) Primary Care Physician [place] [facility] APRN Jan 08, 2020 15:25
[2020-01-08] MEDS ORDERED: cefTRIAXone FOR IV USE 1,000 MG in WATER (STERILE) FOR INJECTION 10 ML IV ONE (15:30)
[2020-01-08] MEDS ORDERED: VANCOMYCIN INJECTION 1,000 MG in NS (IVPB) 250 ML IV ONE (15:30)
[2020-01-08 15:44] LABS: BASOPHILS % (AUTO) 0 % (0-10); EOSINOPHILS # (AUTO) 0.1 10^3/uL (0.0-0.3); EOSINOPHILS % (AUTO) 1 % (0-10); HEMATOCRIT 27 % (35-52); HEMOGLOBIN 9.4 G/DL (11.5-16.0); LYMPHOCYTES # (AUTO) 1.4 X 10^3 (1.0-4.0); LYMPHOCYTES % (AUTO) 8 % (12-44); MEAN CORPUSCULAR HEMOGLOBIN 29 PG (25-34); MEAN CORPUSCULAR HGB CONC 34 G/DL (32-36); MEAN CORPUSCULAR VOLUME 85 FL (80-99); MONOCYTES # (AUTO) 1.2 X 10^3 (0.0-1.0); MONOCYTES % (AUTO) 7 % (0-12); NEUTROPHILS # (AUTO) 14.9 X 10^3 (1.8-7.8); NEUTROPHILS % (AUTO) 85 % (42-75); PLATELET COUNT 280 10^3/uL (130-400); RED CELL DISTRIBUTION WIDTH 13.4 % (10.0-14.5); WHITE BLOOD COUNT 17.6 10^3/uL (4.3-11.0)
[2020-01-08 15:52] LABS: ALBUMIN 2.7 GM/DL (3.2-4.5); CHLORIDE 108 MMOL/L (98-107); POTASSIUM 3.2 MMOL/L (3.6-5.0); SODIUM 138 MMOL/L (135-145)
[2020-01-08 15:53] LABS: CALCIUM 7.9 MG/DL (8.5-10.1)
[2020-01-08 15:54] LABS: GLUCOSE 99 MG/DL (70-105); TOTAL PROTEIN 5.5 GM/DL (6.4-8.2)
[2020-01-08 15:56] LABS: BILIRUBIN,TOTAL 0.2 MG/DL (0.1-1.0); CARBON DIOXIDE 20 MMOL/L (21-32)
[2020-01-08 15:58] LABS: ALKALINE PHOSPHATASE 87 U/L (40-136); CREATININE SERUM 0.69 MG/DL (0.60-1.30); GFR ESTIMATED > 60
[2020-01-08 15:59] LABS: BUN/CREATININE RATIO 10
[2020-01-08] MEDS ORDERED: NS IV 1000 ML 1,000 ML IV SCH (16:00)
[2020-01-08 16:01] LABS: ALANINE AMINOTRANSFERASE 10 U/L (0-55)
[2020-01-08 16:03] LABS: EOSINOPHILS % (MANUAL) 1 %; LYMPHOCYTES % (MANUAL) 10 %; MONOCYTES % (MANUAL) 6 %; NEUTROPHILS % (MANUAL) 83 %; RBC MORPH NORMAL
[2020-01-08] MEDS ORDERED: HOLD METFORMIN - RECEIVED CONTRAST 20 ML VIAL IV SCH (16:15)
[2020-01-08] MEDS ORDERED: NS 100 ML (IVPB) BAG IV ONE (16:15)
[2020-01-08] MEDS ORDERED: CATHETER FLUSH 10 ML SYR IV PRN (16:15)
[2020-01-08] MEDS ORDERED: IOHEXOL 350 MG/ML 100 ML (OMNIPAQUE 350) VIAL IV ONE (16:15)
--- NOTE | 2020-01-08 16:21 | Diagnostic Imaging Report ---
CLINICAL INDICATION: Patient had four days ago. Patient has infection at incision site. EXAM: Axial CT scan of the abdomen and pelvis performed with 100 mL of Omnipaque 350 IV contrast. Coronal and sagittal reformatted images were created. Auto Exposure Controls were utilized during the CT exam to meet ALARA standards for radiation dose reduction. COMPARISON: CT scan of the abdomen and pelvis with contrast dated 07/07/2016. FINDINGS: There is minimal atelectasis involving the left lung base with small left pleural effusion. There is stable chronic bilateral L5 spondylolysis with grade 1 anterolisthesis of L5 on S1. Bones show no other significant abnormality. The liver, spleen, pancreas, gallbladder and adrenal glands are unremarkable. Both kidneys are unremarkable with no hydronephrosis, stone or mass. There is no intestinal obstruction. There is a small to moderate amount of stool involving the right colon. There is a small amount of stool scattered throughout the rest of the colon. The bladder is fluid-filled with no gross abnormality. There is a small amount of free fluid adjacent to the uterus which may be from postoperative changes. There is no lymphadenopathy. There is postop changes consistent with with subcutaneous air, fat stranding and minimal fluid in the low anterior pelvis region. There is no evidence of abscess or loculated fluid collection. The uterus is enlarged with air within it. This likely correlates to postoperative changes from . There is no significant abnormality besides the expected postoperative changes. IMPRESSION: 1: There are expected postoperative changes related to section. There is no evidence of abscess or gross abnormality. There is a small amount of fluid, fat stranding and subcutaneous air in the extra abdominal low pelvis subcutaneous fat area. 2: There is a small amount of fluid in the pelvis and adjacent to the uterus which is not loculated and may be from postoperative changes. 3: Stable chronic bilateral L5 spondylolysis with grade 1 anterolisthesis of L5 on S1. Dictated by: Dictated on workstation # [id number]
--- NOTE | 2020-01-08 17:15 | NUR ---
REPORT RECEIVED FROM [facility] IN ED. THIS RN WILL AWAIT PATIENT'S ARRIVAL TO ROOM 407.
[2020-01-08 17:38] VITALS: BP 129/83
--- NOTE | 2020-01-08 17:40 | NUR ---
GREYSON ALVAREZ admitted to room 407-1, with an admitting diagnosis of abd wass abscess, on 01/08/20 from ER via wheel chair , accompanied by staff .GREYSON ALVAREZ introduced to surroundings, call light, bed controls, phone, TV, temperature control, lights, meal times, smoking policy, visitor policy, side rail policy, bathrooms and showers. Patient Rights given to patient in the handbook. GREYSON ALVAREZ verbalizes understanding that [facility] is not responsible for the loss or damage to any personal effects or valuables that are kept in the patients posession during their hospitalization. The following Patient Care Plans and discharge were discussed with the patient . GREYSON ALVAREZ verbalizes understanding of Interdisciplinary Patient Education. Patient was informed about the Rapid Response Team and its purpose.
[2020-01-08] MEDS ORDERED: LACTATED RINGERS 1,000 ML IV ONE (18:43)
[2020-01-08 19:37] VITALS: BP 135/84
--- NOTE | 2020-01-08 20:48 | NUR ---
UPON ASSESSING PT'S INCISION IT IS NOTED THE AREA OF ERYTHEMA HAS GROWN. PREVIOUS SHIFT MARKED THAT ERYTHEMA WAS JUST AROUND INCISION SITE WITHOUT DRAINAGE WHEN PT WAS ADMITTED TO FLOOR. PT IS CURRENTLY HAVING MODERATE BROWN, LIQUID, FOUL DRAINAGE FROM THE SITE AND ERYTHEMA HAS SPREAD TO THE LOWER PART OF PT'S BELLY BUTTON. JAKE CALLED AND NOTIFIED OF ALL THE ABOVE. HE WILL BE COMING IN TO SEE PATIENT SHORTLY.
[2020-01-08] MEDS: LACTATED RINGERS 1,000 ML IV SCH (21:03)
--- NOTE | 2020-01-08 21:15 | NUR ---
PT PUMPING AT THIS TIME. TOLERATING WELL.
--- NOTE | 2020-01-08 21:40 | NUR ---
SEALS AT BEDSIDE AT THIS TIME. HOUSE SUP ALSO AT BEDSIDE. SEALS OPENS INCISION AT SITE OF DRAINAGE WITH HEMOSTATS. LARGE AMOUNT OF PURULENT, FOUL SMELLING DRAINAGE IS NOTED. SEALS THEN IRRIGATES WOUND WITH 300ML'S HYDROGEN PEROXIDE USING 60 ML IRRIGATION SYRINGE UNTIL IRRIGATING SOLUTION IS CLEAR WITH NO BUBBLES. THE WOUND IS THEN PACKED WITH 0.5 IN IDOFORM GAUZE AND COVERED LOOSELY WITH AN ABD AND TAPE. PT TOLERATED WELL.
[2020-01-08] MEDS ORDERED: ZOLPIDEM 5 MG (AMBIEN) TAB ONE (22:29)
--- NOTE | 2020-01-08 22:33 | History & Physical-OB/GYN ---
History of Present Illness History of Present Illness Reason for visit/HPI Ms. Colunga is Postoperative Day #5 from a Primary Low Transverse . She presented to the Emergency Department with a painful, draining incision that was very red. Date of Admission Jan 08, 2020 at 15:21 Date Seen by a Provider: Jan 08, 2020 Time Seen by a Provider: 22:00 I consulted on this patient on 01/08/20 22:27 Attending Physician Conrad Ryan DO Admitting Physician Conrad Ryan DO Consult Allergies and Home Medications Allergies Coded Allergies: No Known Drug Allergies (Unverified , 07/07/16) Home Medications Acetaminophen 500 Mg Tablet, 1,000 MG PO Q6HR Prescribed by: CONRAD RYAN on 01/05/20 0735 Docusate Sodium 100 Mg Capsule, 100 MG PO BID Prescribed by: CONRAD RYAN on 01/05/20 0735 Ibuprofen 800 Mg Tablet, 800 MG PO Q8H Prescribed by: CONRAD RYAN on 01/05/20 0735 Oxycodone HCl 5 Mg Tablet, 5 MG PO Q4HR PRN for To achieve TAG Prescribed by: CONRAD RYAN on 01/05/20 0735 Vit No.124/Iron/FA 1 Each Tablet, 1 EACH PO DAILY, (Reported) Patient Home Medication List Home Medication List Reviewed: Yes Past Maqdjav-Jbtdtc-Mptamz Hx Patient Social History Marrital Status: single Number of Children: 1 Number of living children: 1 Alcohol Use: Denies Use Recreational Drug Use: No Smoking Status: Current Everyday Smoker Former Smoker, Quit: May 04, 2020 Type Used: Cigarettes Recent Foreign Travel: No Contact w/other who traveled: No Recent Hopitalizations: Yes () Recent Infectious Disease Expo: No Immunizations Up To Date Tetanus Booster (TDap): Less than 5yrs Seasonal Allergies Seasonal Allergies: No Surgeries No Section Respiratory No Cardiovascular No Neurological No Reproductive System : No Hx Reproductive Disorders: No Sexually Transmitted Disease: No HIV/AIDS: No Female Reproductive Disorders: Denies Genitourinary No Gastrointestinal No Musculoskeletal No Endocrine History of Endocrine Disorders: No HEENT History of HEENT Disorders: No Cancer No Psychosocial History of Psychiatric Problem: No Integumentary History of Skin or Integumenta: No Blood Transfusions History of Blood Disorders: No Adverse Reaction to a Blood Tr: No Family Medical History Significant Family History: No Pertinent Family Hx Family Hx: Hypertension 19 FATHER Review of Systems Constitutional: see HPI Physical Exam Physical Exam Vital Signs Vital Signs Date Time Temp Pulse Resp B/P (MAP) Pulse Ox O2 Delivery O2 Flow Rate FiO2 01/08/20 20:30 Room Air 01/08/20 19:37 37.1 105 20 135/84 (101) 97 Room Air 01/08/20 17:47 Room Air 01/08/20 17:38 37.0 103 18 129/83 (98) 96 Room Air 01/08/20 17:25 106 18 134/79 99 01/08/20 15:05 37.1 146 18 134/86 (102) 98 Capillary Refill : Less Than 3 Seconds Labs Laboratory Tests 01/08/20 15:33: White Blood Count 17.6H, Red Blood Count 3.22L, Hemoglobin 9.4L, Hematocrit 27L, Mean Corpuscular Volume 85, Mean Corpuscular Hemoglobin 29, Mean Corpuscular Hemoglobin Concent 34, Red Cell Distribution Width 13.4, Platelet Count 280, Mean Platelet Volume 10.0, Neutrophils (%) (Auto) 85H, Lymphocytes (%) (Auto) 8L , Monocytes (%) (Auto) 7, Eosinophils (%) (Auto) 1, Basophils (%) (Auto) 0, Neutrophils # (Auto) 14.9H, Lymphocytes # (Auto) 1.4, Monocytes # (Auto) 1.2H, Eosinophils # (Auto) 0.1, Basophils # (Auto) 0.0, Neutrophils % (Manual) 83, Lymphocytes % (Manual) 10, Monocytes % (Manual) 6, Eosinophils % (Manual) 1, Blood Morphology Comment NORMAL, Sodium Level 138, Potassium Level 3.2L, Chloride Level 108H, Carbon Dioxide Level 20L, Anion Gap 10, Blood Urea Nitrogen 7, Creatinine 0.69, Estimat Glomerular Filtration Rate > 60, BUN/Creatinine Ratio 10, Glucose Level 99, Lactic Acid Level 1.47, Calcium Level 7.9L, Corrected Calcium 8.9, Total Bilirubin 0.2, Aspartate Amino Transf (AST/SGOT) 10, Alanine Aminotransferase (ALT/SGPT) 10, Alkaline Phosphatase 87, Total Protein 5.5L, Albumin 2.7L General Appearance: Mild Distress (Appears to be in pain--mild discomfort) Respiratory: Chest Non Tender, Lungs Clear, Normal Breath Sounds Cardiovascular: Regular Rate, Rhythm, No Murmur Abdominal: normal bowel sounds, tenderness (Incision is draining a malodorous brown discharge--there is an open area approximately 4 cm from lateral edge) Extremity: Normal Inspection, Non Tender Assessment/Plan Assessment and Plan Assessment: Postoperative Day #5 Primary Low Transverse 2. Wound Cellulitis 3. Wound Seroma Plan: The incision was irrigated with approximately 300 ml of Hydrogen Peroxide, then packed with 1/2 inch Iodoform Gauze. We will watch overnight while giving IV antibiotics and pain medications. CBC in the morning. Admission Diagnosis Admission Status: Observation Clinical Quality Measures DVT/VTE Risk/Contraindication: Risk Factor Score Per Nursin RFS Level Per Nursing on Admit: 4+=Very High CONRAD RYAN DO Jan 08, 2020 22:33
[2020-01-08] MEDS: fentaNYL INJECTION 100 MCG/2 ML AMP IV PRN (22:41)
[2020-01-08] MEDS ORDERED: ZOLPIDEM 5 MG (AMBIEN) TAB PO ONE (22:45)
[2020-01-08 23:23] VITALS: BP 136/89
[2020-01-09] MEDS: fentaNYL INJECTION 100 MCG/2 ML AMP IV PRN (02:21)
[2020-01-09 02:27] VITALS: BP 132/88
[2020-01-09] MEDS ORDERED: ACETAMINOPHEN 325 MG TABLET PO PRN (02:30)
[2020-01-09] MEDS ORDERED: ACETAMINOPHEN 325 MG TABLET ONE (02:32)
[2020-01-09] MEDS ORDERED: VANCOMYCIN 1000 MG/VIAL ONE (02:56)
[2020-01-09 03:00] VITALS: BP 33/92
[2020-01-09] MEDS ORDERED: VANCOMYCIN 1 GM/NS 250 ML IVPB IV SCH ×4 (03:30→16:00)
[2020-01-09] MEDS: LACTATED RINGERS 1,000 ML IV SCH (04:35)
[2020-01-09 05:27] LABS: BASOPHILS % (AUTO) 0 % (0-10); EOSINOPHILS # (AUTO) 0.1 10^3/uL (0.0-0.3); EOSINOPHILS % (AUTO) 1 % (0-10); HEMATOCRIT 26 % (35-52); HEMOGLOBIN 8.6 G/DL (11.5-16.0); LYMPHOCYTES # (AUTO) 2.3 X 10^3 (1.0-4.0); LYMPHOCYTES % (AUTO) 12 % (12-44); MEAN CORPUSCULAR HEMOGLOBIN 28 PG (25-34); MEAN CORPUSCULAR HGB CONC 33 G/DL (32-36); MEAN CORPUSCULAR VOLUME 86 FL (80-99); MEAN PLATELET VOLUME 9.8 FL (7.4-10.4); MONOCYTES # (AUTO) 1.1 X 10^3 (0.0-1.0); MONOCYTES % (AUTO) 6 % (0-12); NEUTROPHILS # (AUTO) 14.8 X 10^3 (1.8-7.8); NEUTROPHILS % (AUTO) 81 % (42-75); PLATELET COUNT 297 10^3/uL (130-400); RED CELL DISTRIBUTION WIDTH 13.7 % (10.0-14.5); WHITE BLOOD COUNT 18.3 10^3/uL (4.3-11.0)
[2020-01-09 05:36] LABS: ALBUMIN 2.5 GM/DL (3.2-4.5); CHLORIDE 111 MMOL/L (98-107); POTASSIUM 3.2 MMOL/L (3.6-5.0); SODIUM 139 MMOL/L (135-145)
[2020-01-09 05:38] LABS: CALCIUM 7.8 MG/DL (8.5-10.1)
[2020-01-09 05:39] LABS: GLUCOSE 98 MG/DL (70-105); TOTAL PROTEIN 5.2 GM/DL (6.4-8.2)
[2020-01-09 05:40] LABS: CARBON DIOXIDE 19 MMOL/L (21-32)
[2020-01-09 05:41] LABS: BILIRUBIN,TOTAL 0.2 MG/DL (0.1-1.0)
[2020-01-09] MEDS ORDERED: cefTRIAXone 1,000 MG IV (ROCEPHIN) VIAL ONE (05:41)
[2020-01-09] MEDS ORDERED: WATER (STERILE) FOR INJECTION 10 ML ONE (05:41)
[2020-01-09 05:42] LABS: ALKALINE PHOSPHATASE 76 U/L (40-136); CREATININE SERUM 0.64 MG/DL (0.60-1.30); GFR ESTIMATED > 60
[2020-01-09 05:43] LABS: BUN/CREATININE RATIO 8
[2020-01-09 05:45] LABS: ALANINE AMINOTRANSFERASE 8 U/L (0-55)
--- NOTE | 2020-01-09 05:46 | NUR ---
PRAMOD NOTIFIED OF PT'S REQUEST TO BE DISCHARGED D/T AND DISTANCE FROM HOME AND . PRAMOD GIVES ORDERS TO GIVE 1530 DOSE OF ROCEPHIN NOW AND HE WILL BE UP SHORTLY TO DISCHARGE PT.
[2020-01-09] MEDS ORDERED: AMOX500C2 PO (06:06)
[2020-01-09] MEDS ORDERED: CLIN300C3 PO (06:06)
--- NOTE | 2020-01-09 06:13 | Discharge Summary ---
Diagnosis/Chief Complaint Date of Admission Jan 08, 2020 at 15:21 Date of Discharge January 09, 2020 Discharge Date: Jan 09, 2020 Discharge Time: 07:00 Admission Diagnosis Admission Diagnosis Postoperative Day #5 Primary Low Transverse 2. Wound Cellulitis 3. Wound Seroma Discharge Diagnosis Postoperative Day #5 Primary Low Transverse 2. Wound Cellulitis 3. Wound Seroma 4. Leukocytosis 5. Fever Reason Hospital Visit Ms. Colunga is Postoperative Day #5 from a Primary Low Transverse . She presented to the Emergency Department with a painful, draining incision that was very red. Discharge Summary Hospital Course Was the Problem List Reviewed?: Yes Hospital Course Ms. Colunga was admitted for IV antibiotic therapy secondary to postoperative w ound cellulitis. She had an increased white count and had a fever that subsided. Once admitted she was started on IV antibiotics and pain medications and her incision was irrigated and packed with Iodoform gauze. After 24 hours of IV antibiotic therapy, Ms. Colunga stated that she felt better and was anxious to be released to care for her . Consequently, I am going to discharge her to home with oral antibiotics and pain medication with a follow up in my office tomorrow. She was instructed to call me immediately should she have questions or problems. Labs Laboratory Tests 01/08/20 15:33: White Blood Count 17.6H, Red Blood Count 3.22L, Hemoglobin 9.4L, Hematocrit 27L, Neutrophils (%) (Auto) 85H, Lymphocytes (%) (Auto) 8L, Neutrophils # (Auto) 14.9H, Monocytes # (Auto) 1.2H, Potassium Level 3.2L, Chloride Level 108H, Carbon Dioxide Level 20L, Calcium Level 7.9L, Total Protein 5.5L, Albumin 2.7L 01/09/20 05:20: White Blood Count 18.3H, Red Blood Count 3.03L, Hemoglobin 8.6L, Hematocrit 26L, Neutrophils (%) (Auto) 81H, Neutrophils # (Auto) 14.8H, Monocytes # (Auto) 1.1H, Potassium Level 3.2L, Chloride Level 111H, Carbon Dioxide Level 19L, Calcium L evel 7.8L, Total Protein 5.2L, Albumin 2.5L, Blood Urea Nitrogen 5L Procedures None. Discharge Physical Examination Allergies: Coded Allergies: No Known Drug Allergies (Unverified , 07/07/16) Vitals & I&Os Vital Signs Date Time Temp Pulse Resp B/P (MAP) Pulse Ox O2 Delivery O2 Flow Rate FiO2 01/09/20 03:20 37.6 01/09/20 03:00 108 20 33/92 (73) 96 Room Air General Appearance: Alert, Oriented X3, Cooperative, No Acute Distress HEENT: Atraumatic Respiratory: Clear to Auscultation, Normal Air Movement Cardiovascular: Regular Rate, No Murmurs Abdominal: Normal Bowel Sounds Extremities: No Clubbing, No Cyanosis Skin: No Rashes Neuro: Normal Gait, Normal Speech Psych/Mental Status: Mental Status NL Discharge Home Medications Reviewed and agree with Discharge Medication list on patient's Discharge Instruction sheet Instructions to Patient/Family Please see electronic discharge instructions given to patient. Clinical Quality Measures DVT/VTE Risk/Contraindication: Risk Factor Score Per Nursin RFS Level Per Nursing on Admit: 4+=Very High SENDY BENAVIDEZ DO Jan 09, 2020 06:12
[2020-01-09 07:24] VITALS: BP 131/88
[2020-01-09] MEDS ORDERED: VANCOMYCIN 750 MG/NS 250 ML IVPB IV NR ×2 (07:30)
--- NOTE | 2020-01-09 07:55 | NUR ---
CR 0.64; CR CL > 60; WT 96.9 KG; VANCO 1 GM WAS GIVEN THIS AM. WILL GIVE EXTRA VANCO 750 MG TO MAKE 1750 MG BOLUS THEN FOLLOW WITH VANCO 1000 MG IV Q8H; TROUGH AFTER 3RD DOSE
[2020-01-09] MEDS ORDERED: cefTRIAXone 1,000 MG/SWFI 10 ML IV PUSH IV SCH ×2 (15:30)
[2020-01-10] MEDS ORDERED: TROUGH ORDER-PHARMACY XX NR (07:00)
--- OUTSIDE RECORDS SUMMARY | 2020-01-24 12:59 | XMS REPORT ---
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 Name Role Phone NO, LOCAL PHYSICIAN Unavailable Unavailable ALECIA SHIN Unavailable Unavailable HILARY RENEE MD Unavailable Unavailable Unavailable Unavailable Allergies Normalized Allergy Reported Date of Reaction(s) Care Provider Facility Allergy Type classification allergen Allergy Onset DA (2 Unclassified No Known Drug 07-07-2016 - no information HILARY RENEE , Not Available sources.) Allergies (08278) Medications No Information Problems Active Problems Problem Normalized Date Last Normalized Normalized Provider Fa cility Classification Problem(s) Recorded Problem Problem Sta tus Duration Substance-rela Nicotine Chronic Active HILARY RENEE , Not Available kumar disorders dependence, (47917) (2 sources.) cigarettes, uncomplicated Past or Other Problems Problem Normalized Date Last Normalized Normalized Provider Fa cility Classification Problem(s) Recorded Problem Problem Sta tus Duration Bacterial Chlamydial Episodic Completed ALECIA Not Availab le infection; infection, MARCI ACOSTA (48924) unspecified unspecified site (1 source.) Abdominal pain Lower Episodic Completed HILARY RENEE , Not Available (1 source.) abdominal (17293) pain, unspecified Ovarian cyst Unspecified no information no information HILARY SOLIS , Not Available (1 source.) ovarian cystMD (96758) right side Procedures The data below is from unstructured sourcesNo known history of procedures. Immunizations The data below is from unstructured sourcesNo immunization records. Results No Information Vital Signs The data below is from unstructured sources Vital Response Date/Time Temperature (Fahrenheit) 97.8 degree s F (97.6 - 99.5) 07/08/2016 5:12pm Temperature (Calculated Celsius) 36. 66934 degrees C (36.4 - 37.5) 07/08/2016 5:12pm [...] inches 07/07/2016 4:20pm Height (Calculated Centimeters) 152. 555099 cm 07/08/2016 5:12pm Weight (Pounds) 160 pounds [...] See Medication Section Referrals NO,LOCAL PHYSICIAN - [facility] Physician Additional Instructions/Education Al l discharge instructions reviewed with patient and/or family. Voiced understanding. pattern duplicator medication prescribed by [facility] ED provider at the [facility] in [place], [place]. Take as directed. Continue medications prescribed by Dr. Renee at [facility] emergency department yesterday. Follow-up with the [...] This clinical document has been generated using [employer] software that has been certified by the Office of the National Coordinator for Health Information Technology (ONC 15.99.04.3023.Diam.31.00.0.070064) and the National Committee for Canine Enforcement Officer (NCQA, as an eMeasure certified technology). FOR [...] BASED ON T HE PRIMARY CLINICAL RECORDS. [employer] provides no warranty or guara ntee of the accuracy or completeness of information in this document.The followi ng information is based on time limited clinical information
== END 2020-01-09 06:00 | disposition home or self-care (01) ==
LOC: EDUNIT# 14:52 → ER 14:53 → 4TH 15:21 → UNDOADMIN 15:21 → 4TH 17:40 → UNDODISIN 01-09 09:15
PROVIDERS: ADMIT Obstetrics & Gynecology; ATTEND Obstetrics & Gynecology
DX: O86.02 Infection of obstetric surgical wound, deep incisional site (principal); O90.2 Hematoma of obstetric wound; F17.210 Nicotine dependence, cigarettes, uncomplicated; Z79.891 Long term (current) use of opiate analgesic; Z79.899 Other long term (current) drug therapy
CPT/HCPCS: 36415; 74177; 80053; 83605; 85007; 85025; 85027; 87040; 87070; 87077; 87186; 87205; 96361; 96365; 96375